=== PATIENT | female | born 1990 | race Caucasian/White ===

== ENCOUNTER 2019-08-09 11:33 | Inpatient (IN) | payer MEDICAID ==
[~2019-08-09] VITALS: Ht 154.9 cm; Wt 68.4 kg
[2019-08-09 11:55] VITALS: Ht 154.9 cm; Wt 68.4 kg
[2019-08-09] MEDS ORDERED: OXYTOCIN 30 UNITS/LR 500 ML IV SCH ×2 (13:30)
[2019-08-09] MEDS ORDERED: MISOPROSTOL 200 MCG TAB PR PRN (13:30)
[2019-08-09] MEDS ORDERED: CARBOPROST 250 MCG INJ IM PRN (13:30)
[2019-08-09] MEDS ORDERED: MINERAL OIL LIGHT 10 ML VIAL TOP PRN (13:30)
[2019-08-09] MEDS ORDERED: OXYTOCIN 30 UNITS/LR 500 ML IV PRN (13:30)
[2019-08-09] MEDS ORDERED: AMPICILLIN 2 GM/NS (PMX) 100 ML IV ONE (13:30)
[2019-08-09] MEDS ORDERED: METHYLERGONOVINE 0.2 MG INJ IM PRN (13:30)
[2019-08-09] MEDS ORDERED: MISOPROSTOL 50 MCG CAPSULE PO SCH (13:30)
[2019-08-09] MEDS ORDERED: LIDOCAINE 1% (MPF) 30 ML INJ INJ PRN (13:30)
[2019-08-09] MEDS ORDERED: BUTORPHANOL 2 MG INJ IV PRN (13:30)
[2019-08-09] MEDS ORDERED: IBUPROFEN 600 MG TAB PO PRN (13:30)
[2019-08-09] MEDS: LACTATED RINGER'S 1,000 ML IV SCH (17:20)
[2019-08-10] MEDS: LACTATED RINGER'S 1,000 ML IV SCH (01:53)
[2019-08-10] MEDS: AMPICILLIN 1 GM/NS (PMX) 50 ML IV SCH ×2 (01:53→05:38)
[2019-08-10] MEDS ORDERED: MINERAL OIL LIGHT 10 ML VIAL TOP ONE (06:30)
[2019-08-10 08:05] VITALS: BP 129/60; PULSE 84; RESP 17
[2019-08-10] MEDS ORDERED: MISOPROSTOL 200 MCG TAB PR PRN (08:30)
[2019-08-10] MEDS ORDERED: OXYCODONE/ASPIRIN (4.88/325) TAB PO PRN ×2 (08:30)
[2019-08-10] MEDS ORDERED: LANOLIN HPA 1 PKT TOP PRN (08:30)
[2019-08-10] MEDS ORDERED: METHYLERGONOVINE 0.2 MG INJ IM PRN (08:30)
[2019-08-10] MEDS ORDERED: OXYTOCIN 30 UNITS/LR 500 ML IV PRN (08:30)
[2019-08-10] MEDS ORDERED: CARBOPROST 250 MCG INJ IM PRN (08:30)
[2019-08-10] MEDS ORDERED: ZOLPIDEM 5 MG TAB PO PRN (08:30)
[2019-08-10] MEDS: IBUPROFEN 600 MG TAB PO SCH ×3 (15:32→23:29)
[2019-08-10 16:00] VITALS: BP 113/84; PULSE 76; RESP 19
[2019-08-10] MEDS: WITCH HAZEL/GLYCERIN PAD PR PRN (18:12)
[2019-08-10] MEDS: BENZOCAINE 20% 56 ML SPRAY TOP PRN (18:13)
[2019-08-10 19:40] VITALS: BP 120/79; PULSE 90; RESP 18
[2019-08-10] MEDS: SENNA/DOCUSATE NA (8.6MG/50MG) TAB PO SCH (21:42)
[2019-08-11] VITALS (7 sets, daily range): BP systolic 108–125; BP diastolic 57–70; PULSE 68–87; RESP 18–19
[2019-08-11] MEDS: IBUPROFEN 600 MG TAB PO SCH ×3 (05:30→18:09)
[2019-08-11] MEDS: SENNA/DOCUSATE NA (8.6MG/50MG) TAB PO SCH ×2 (09:08→21:23)
[2019-08-11] MEDS ORDERED: MAGNESIUM SULFATE 20 GM/500 ML 500 ML IV SCH (18:26)
[2019-08-11] MEDS ORDERED: CA GLUCONATE (GM) 10% 10ML INJ IV PRN ×2 (18:30)
[2019-08-11] MEDS ORDERED: NACL 0.9% 3 ML SYG IV SCH ×2 (18:30)
[2019-08-11] MEDS ORDERED: MAGNESIUM SULFATE 4 GM/100 ML 100 ML IV SCH ×2 (18:30)
[2019-08-11] MEDS: LACTATED RINGER'S 1,000 ML IV SCH (21:23)
[2019-08-11] MEDS: MAGNESIUM SULFATE 40GM/1000ML 1,000 ML IV SCH (22:16)
[2019-08-12] VITALS (22 sets, daily range): BP systolic 72–135; BP diastolic 58–109; PULSE 72–95; RESP 16–20
[2019-08-12] MEDS: IBUPROFEN 600 MG TAB PO SCH ×5 (00:08→23:47)
[2019-08-12] MEDS: SENNA/DOCUSATE NA (8.6MG/50MG) TAB PO SCH ×2 (09:00→21:32)
[2019-08-12] MEDS ORDERED: DIPHTH/TET/ACEL PERTUSS (ADULT) 0.5 ML VIAL IM* ONE (09:00)
[2019-08-12] MEDS: LACTATED RINGER'S 1,000 ML IV SCH ×2 (09:07→09:20)
[2019-08-12] MEDS: MAGNESIUM SULFATE 40GM/1000ML 1,000 ML IV SCH (16:57)
[2019-08-13 04:00] VITALS: BP 139/89; PULSE 70; RESP 18
[2019-08-13] MEDS: IBUPROFEN 600 MG TAB PO SCH ×2 (05:39→11:38)
[2019-08-13 05:45] VITALS: BP 115/65; PULSE 77; RESP 18
[2019-08-13 08:00] VITALS: BP 116/64; PULSE 71; RESP 18
[2019-08-13] MEDS: SENNA/DOCUSATE NA (8.6MG/50MG) TAB PO SCH (09:16)
[2019-08-13] MEDS: BENZOCAINE 20% 56 ML SPRAY TOP PRN (09:17)
[2019-08-13] MEDS: WITCH HAZEL/GLYCERIN PAD PR PRN (09:17)
== END 2019-08-13 13:40 | disposition home or self-care (01) | DRG 807 ==
LOC: OBT 11:33 → L-D 11:33 → OBT 13:20 → L-D 13:30 → PP1 08-10 16:30
PROVIDERS: ADMIT Obstetrics & Gynecology; ATTEND Obstetrics & Gynecology
PROC: 10E0XZZ Delivery of Products of Conception, External Approach (ICD-10-PCS; principal; 2019-08-10)
PROC: 0KQM0ZZ Repair Perineum Muscle, Open Approach (ICD-10-PCS; 2019-08-10)
PROC: 3E033VJ Introduction of Other Hormone into Peripheral Vein, Percutaneous Approach (ICD-10-PCS; 2019-08-10)
DX: O48.0 Post-term pregnancy (principal); O70.1 Second degree perineal laceration during delivery; Z37.0 Single live birth; Z3A.40 40 weeks gestation of pregnancy
CPT/HCPCS: 80053; 80069; 80076; 81001; 81003; 82570; 83615; 83735; 84560; 85025; 85384; 85610; 85730; 86592; 86850; 86900; 86901; 87340; G0463; J0290; J2590; J7120